=== PATIENT | male | born 1955 | race African-American/Black ===

== ENCOUNTER → 2017-02-09 | Outpatient (CLI) | payer MEDICARE, OTHER ==
[~2017-02-09] MED LIST: QUET300T2 PO
== END | disposition home or self-care (01) ==
LOC: RADPV 11:00
PROVIDERS: ATTEND Internal Medicine Gastroenterology
DX: K76.89 Other specified diseases of liver (principal); N28.1 Cyst of kidney, acquired
CPT/HCPCS: 76700

== ENCOUNTER → 2018-01-24 | Outpatient (CLI) | payer MEDICARE, OTHER | END | disposition home or self-care (01) | LOC: RADPV 09:16 | PROVIDERS: ATTEND Internal Medicine Gastroenterology | DX: K76.0 Fatty (change of) liver, not elsewhere classified (principal); N28.1 Cyst of kidney, acquired; B19.20 Unspecified viral hepatitis C without hepatic coma | CPT/HCPCS: 76700 ==

== ENCOUNTER 2019-11-10 16:24 | Emergency (ER) | payer OTHER ==
[~2019-11-10] VITALS: Ht 167.6 cm; Wt 65.9 kg
[2019-11-10] MEDS ORDERED: SODIUM CHLORIDE 0.9% 1,000 ML IV ONE (17:00)
[2019-11-10 17:47] LABS: GLUCOSE,POINT OF CARE 77 MG/DL (70-110)
[2019-11-10 18:12] LABS: BASOPHILS % (AUTO) 0.4 % (0.0-2.0); EOSINOPHILS % (AUTO) 0.5 % (1.0-6.0); HEMATOCRIT 40.7 % (41-53); HEMOGLOBIN 13.2 g/dL (13.5-17.5); LYMPHOCYTES # (AUTO) 1.6 K/uL (1.0-4.8); MEAN CORPUSCULAR HEMOGLOBIN 26.9 pg (26.0-34.0); MEAN CORPUSCULAR HGB CONC 32.4 G/dL (31.0-37.0); MEAN CORPUSCULAR VOLUME 83 fL (80-100); MONOCYTES # (AUTO) 0.4 K/uL (0.1-1.0); MONOCYTES % (AUTO) 6.7 % (2.0-9.0); NEUTROPHILS # (AUTO) 4.3 K/uL (1.8-7.7); NEUTROPHILS % (AUTO) 67.4 % (40.0-70.0); PLATELET COUNT (AUTO) 179 K/uL (150-450); RED CELL DISTRIBUTION WIDTH 13.5 % (11.5-14.5)
[2019-11-10 18:12] LABS: INFLUENZA TYPE A NEGATIVE FOR TYPE A (NEGATIVE); INFLUENZA TYPE B NEGATIVE FOR TYPE B (NEGATIVE)
[2019-11-10 18:21] LABS: CALCIUM, TOTAL 9.2 mg/dL (8.8-10.5); CREATININE 1.79 mg/dL (0.60-1.30)
[2019-11-10 18:29] LABS: LACTIC ACID 1.3 mmol/L (0.4-2.0)
[2019-11-10 18:36] LABS: ALBUMIN 4.2 g/dL (3.4-5.0); BILIRUBIN,TOTAL 0.4 mg/dL (0.1-1.0); TOTAL PROTEIN, SERUM 8.5 g/dL (6.4-8.2)
[2019-11-10 20:00] VITALS: BP 128/76
== END 2019-11-10 19:46 | disposition home or self-care (01) ==
LOC: EMS 16:27
DX: E86.0 Dehydration (principal); R79.89 Other specified abnormal findings of blood chemistry; R42 Dizziness and giddiness; I10 Essential (primary) hypertension; Z20.828 Contact with and (suspected) exposure to other viral communicable diseases; Z87.891 Personal history of nicotine dependence; Z95.0 Presence of cardiac pacemaker
CPT/HCPCS: 36415; 71045; 80053; 82962; 83605; 84484; 85025; 87426; 87804; 93005; 96360; 99285; J7030; 82948

== ENCOUNTER 2019-11-16 09:34 | Emergency (ER) | payer OTHER ==
[~2019-11-16] VITALS: Ht 167.6 cm; Wt 65.9 kg
[2019-11-16] MEDS ORDERED: PHENAZOPYRIDINE HCL 100 MG TABLET PO ONE (10:45)
[2019-11-16 12:24] LABS: APPEARANCE,URINE CLEAR (CLEAR); GLUCOSE, URINE (UA) NEGATIVE (NEGATIVE); KETONES,URINE TRACE mg/dL (NEGATIVE); LEUKOCYTE ESTERASE ,URINE SMALL (NEGATIVE); NITRATE,URINE POSITIVE (NEGATIVE); OCCULT BLOOD,URINE NEGATIVE (NEGATIVE); PROTEIN,URINE POS 1+ (NEGATIVE)
[2019-11-16 12:37] LABS: BILIRUBIN,URINE PRELIM. POSITIVE (NEGATIVE)
[2019-11-16 12:38] LABS: BACTERIA,URINE Few /HPF (None Seen); RBC,URINE 0-2 /HPF (0-2)
[2019-11-16 12:39] LABS: MUCUS,URINE Moderate LPF (None Seen)
[2019-11-16 12:45] VITALS: BP 143/69
== END 2019-11-16 13:40 | disposition home or self-care (01) ==
LOC: EMS 09:38
DX: N34.2 Other urethritis (principal); G89.29 Other chronic pain; Z87.891 Personal history of nicotine dependence
CPT/HCPCS: 87491; 87591

== ENCOUNTER 2019-11-18 07:16 | Emergency (ER) | payer OTHER ==
[~2019-11-18] VITALS: Ht 167.6 cm; Wt 62.3 kg
[2019-11-18] MEDS ORDERED: ASPI-728 PO (07:26)
[2019-11-18] MEDS ORDERED: CLON-592 PO (07:26)
[2019-11-18] MEDS ORDERED: CARV3 PO (07:26)
[2019-11-18] MEDS ORDERED: LISI-661 PO (07:26)
[2019-11-18] MEDS ORDERED: SPIR25 PO (07:26)
[2019-11-18] MEDS ORDERED: PERTUSS(ACELL),DIPH,TET VAC/PF 0.5 ML VIAL IM ONE (09:00)
[2019-11-18] MEDS ORDERED: CefTRIAXone SODIUM 1 GM/VIAL IM ONE (09:00)
[2019-11-18] MEDS ORDERED: AZITHROMYCIN 500 MG TABLET PO ONE (09:00)
[2019-11-18 09:14] VITALS: BP 133/75
[2019-11-18] MEDS ORDERED: PHENAZOPYRIDINE HCL 100 MG TABLET PO ONE (09:30)
[2019-11-18 10:02] LABS: APPEARANCE,URINE TURBID (CLEAR); GLUCOSE, URINE (UA) NEGATIVE (NEGATIVE); KETONES,URINE 15 mg/dL (NEGATIVE); LEUKOCYTE ESTERASE ,URINE SMALL (NEGATIVE); NITRATE,URINE POSITIVE (NEGATIVE); OCCULT BLOOD,URINE NEGATIVE (NEGATIVE); PROTEIN,URINE POS 1+ (NEGATIVE)
[2019-11-18 10:04] LABS: BILIRUBIN,URINE PRELIM. POSITIVE (NEGATIVE)
[2019-11-18 10:12] LABS: BACTERIA,URINE None Seen /HPF (None Seen); RBC,URINE None Seen /HPF (0-2); SQUAMOUS EPITHELIAL CELL,UR Few /LPF (None Seen); URIC ACID CRYSTALS,URINE Many /LPF (None Seen); WBC,URINE None Seen /HPF (0-5)
[2019-11-18 10:30] LABS: BASOPHILS % (AUTO) 0.2 % (0.0-2.0); EOSINOPHILS % (AUTO) 0.3 % (1.0-6.0); HEMATOCRIT 35.9 % (41-53); HEMOGLOBIN 11.7 g/dL (13.5-17.5); LYMPHOCYTES # (AUTO) 1.1 K/uL (1.0-4.8); LYMPHOCYTES % (AUTO) 15.9 % (22.0-44.0); MEAN CORPUSCULAR HEMOGLOBIN 27.2 pg (26.0-34.0); MEAN CORPUSCULAR HGB CONC 32.6 G/dL (31.0-37.0); MEAN CORPUSCULAR VOLUME 83 fL (80-100); MONOCYTES # (AUTO) 0.5 K/uL (0.1-1.0); MONOCYTES % (AUTO) 6.6 % (2.0-9.0); NEUTROPHILS # (AUTO) 5.6 K/uL (1.8-7.7); PLATELET COUNT (AUTO) 194 K/uL (150-450); RED BLOOD CELL COUNT(AUTO) 4.31 MIL/uL (4.50-5.90); RED CELL DISTRIBUTION WIDTH 13.4 % (11.5-14.5)
[2019-11-18 10:40] LABS: CALCIUM, TOTAL 9.4 mg/dL (8.8-10.5); CREATININE 2.19 mg/dL (0.60-1.30); POTASSIUM 4.6 mmol/L (3.5-5.1)
[2019-11-18 10:55] LABS: ALBUMIN 3.9 g/dL (3.4-5.0); BILIRUBIN,TOTAL 0.3 mg/dL (0.1-1.0); TOTAL PROTEIN, SERUM 8.3 g/dL (6.4-8.2)
== END 2019-11-18 11:32 | disposition home or self-care (01) ==
LOC: EMS 07:16
DX: N39.0 Urinary tract infection, site not specified (principal); R79.89 Other specified abnormal findings of blood chemistry; I10 Essential (primary) hypertension; Z87.891 Personal history of nicotine dependence; Z95.0 Presence of cardiac pacemaker; Z79.899 Other long term (current) drug therapy; Z79.82 Long term (current) use of aspirin
CPT/HCPCS: 36415; 80053; 81001; 85025; 87491; 87591; 90471; 90715; 96372; 99284; J0696

== ENCOUNTER 2020-01-16 20:49 | Inpatient (IN) | payer OTHER ==
[~2020-01-16] VITALS: Ht 170.2 cm; Wt 67.2 kg
[~2020-01-16 20:49] MED LIST changes: +ASPI-728 PO; +CARV3 PO; +CLON-592 PO; +LISI-661 PO; +SPIR25 PO
[2020-01-16 22:17] LABS: ANION GAP 8 mmol/L (8-16); BASOPHILS % (AUTO) 0.3 % (0.0-2.0); CARBON DIOXIDE 30 mmol/L (22-29); CHLORIDE 105 mmol/L (98-107); CREATININE 0.91 mg/dL (0.60-1.30); EOSINOPHILS % (AUTO) 1.1 % (1.0-6.0); GLOMERULAR FILTR. RATE CALC > 60 mL/min (>60); GLUCOSE,RANDOM 88 mg/dL (70-110); HEMATOCRIT 40.1 % (41-53); HEMOGLOBIN 13.1 g/dL (13.5-17.5); LYMPHOCYTES # (AUTO) 1.1 K/uL (1.0-4.8); LYMPHOCYTES % (AUTO) 23.5 % (22.0-44.0); MEAN CORPUSCULAR HEMOGLOBIN 27.7 pg (26.0-34.0); MEAN CORPUSCULAR HGB CONC 32.6 G/dL (31.0-37.0); MEAN CORPUSCULAR VOLUME 85 fL (80-100); MONOCYTES # (AUTO) 0.4 K/uL (0.1-1.0); MONOCYTES % (AUTO) 8.5 % (2.0-9.0); NEUTROPHILS # (AUTO) 3.2 K/uL (1.8-7.7); NEUTROPHILS % (AUTO) 66.6 % (40.0-70.0); PLATELET COUNT (AUTO) 201 K/uL (150-450); POTASSIUM 4.2 mmol/L (3.5-5.1); RED BLOOD CELL COUNT(AUTO) 4.73 MIL/uL (4.50-5.90); RED CELL DISTRIBUTION WIDTH 15.1 % (11.5-14.5); SODIUM SERUM 143 mmol/L (136-145); UREA NITROGEN, BLOOD 13 mg/dL (7-18)
[2020-01-16 22:23] LABS: INR 1.1 (0.9-1.1); PROTHROMBIN TIME 11.1 SEC (9.4-11.6)
[2020-01-16 22:41] LABS: ALANINE AMINOTRANSFERASE 19 U/L (12-78); ALKALINE PHOSPHATASE 94 U/L (46-116); ASPARTATE AMINOTRANSFERASE 20 U/L (15-37); BILIRUBIN,TOTAL 0.3 mg/dL (0.1-1.0); CREATINE KINASE, TOTAL ONLY 177 U/L (39-308); TOTAL PROTEIN, SERUM 8.1 g/dL (6.4-8.2)
[2020-01-16 22:51] LABS: B-TYPE NATRIURETIC PEPTIDE 50 pg/mL (0-100)
[2020-01-16] MEDS ORDERED: OxyCODONE HCL/ACETAMINOPHEN 5-325 MG TABLET PO PRN (23:00)
[2020-01-16] MEDS ORDERED: ACETAMINOPHEN 325 MG TABLET PO PRN (23:00)
[2020-01-16] MEDS: HEPARIN SODIUM,PORCINE 5,000 UNITS/ML VIAL SQ SCH (23:33)
[2020-01-17 03:04] LABS: APPEARANCE,URINE CLEAR (CLEAR); BILIRUBIN,URINE NEGATIVE (NEGATIVE); GLUCOSE, URINE (UA) NEGATIVE (NEGATIVE); KETONES,URINE NEGATIVE (NEGATIVE); LEUKOCYTE ESTERASE ,URINE NEGATIVE (NEGATIVE); NITRATE,URINE NEGATIVE (NEGATIVE); OCCULT BLOOD,URINE NEGATIVE (NEGATIVE); PROTEIN,URINE NEGATIVE (NEGATIVE); UROBILINOGEN,URINE 0.2 mg/dL (<=1.0)
[2020-01-17 03:10] LABS: AMPHET/METH SCREEN,URINE NEGATIVE (NEGATIVE); BARBITURATE SCREEN, URINE NEGATIVE (NEGATIVE); BENZODIAZEPINES SCREEN,URINE NEGATIVE (NEGATIVE); CANNABINOID SCREEN,URINE NEGATIVE (NEGATIVE); COCAINE SCREEN,URINE NEGATIVE (NEGATIVE); METHADONE SCREEN, URINE NEGATIVE (NEGATIVE); OPIATE SCREEN,URINE NEGATIVE (NEGATIVE); PHENCYCLIDINE SCREEN,URINE NEGATIVE (NEGATIVE)
[2020-01-17] MEDS: HEPARIN SODIUM,PORCINE 5,000 UNITS/ML VIAL SQ SCH ×3 (08:13→23:39)
[2020-01-17] MEDS: ASPIRIN 81 MG CHEWABLE TABLET PO SCH (08:14)
[2020-01-17] MEDS: FAMOTIDINE 20 MG TABLET PO SCH (08:14)
[2020-01-17] MEDS: DOCUSATE SODIUM 100 MG CAPSULE PO SCH ×2 (08:16→20:55)
[2020-01-17] MEDS: AmLODIPine BESYLATE 5 MG TABLET PO SCH (10:22)
[2020-01-17 12:00] VITALS: BP 177/91
[2020-01-17 14:16] LABS: GLUCOSE,POINT OF CARE 74 MG/DL (70-110)
[2020-01-17] MEDS: CARVEDILOL 6.25 MG TABLET PO SCH ×2 (15:04→20:55)
[2020-01-17] MEDS: LISINOPRIL 10 MG TABLET PO SCH (15:04)
[2020-01-17 16:00] VITALS: BP 140/74
[2020-01-17] MEDS ORDERED: RIFA300 PO (16:35)
[2020-01-17] MEDS ORDERED: LISI-662 PO (16:43)
[2020-01-17] MEDS ORDERED: QUET100T PO (16:43)
[2020-01-17] MEDS: RIFAMPIN 300 MG CAPSULE PO SCH (17:50)
[2020-01-17 20:00] VITALS: BP 119/69
[2020-01-18] VITALS (7 sets, daily range): BP systolic 117–154; BP diastolic 63–90
[2020-01-18] MEDS: HEPARIN SODIUM,PORCINE 5,000 UNITS/ML VIAL SQ SCH ×2 (08:34→18:30)
[2020-01-18] MEDS: RIFAMPIN 300 MG CAPSULE PO SCH (08:34)
[2020-01-18] MEDS: AmLODIPine BESYLATE 5 MG TABLET PO SCH (08:34)
[2020-01-18] MEDS: DOCUSATE SODIUM 100 MG CAPSULE PO SCH ×2 (08:34→21:00)
[2020-01-18] MEDS: ASPIRIN 81 MG CHEWABLE TABLET PO SCH (08:34)
[2020-01-18] MEDS: CARVEDILOL 6.25 MG TABLET PO SCH ×2 (08:34→21:00)
[2020-01-18] MEDS: FAMOTIDINE 20 MG TABLET PO SCH (08:34)
[2020-01-18] MEDS: LISINOPRIL 10 MG TABLET PO SCH (08:34)
[2020-01-18 09:40] LABS: BASOPHILS % (AUTO) 0.4 % (0.0-2.0); EOSINOPHILS % (AUTO) 1.1 % (1.0-6.0); HEMATOCRIT 43.1 % (41-53); HEMOGLOBIN 14.1 g/dL (13.5-17.5); LYMPHOCYTES # (AUTO) 1.1 K/uL (1.0-4.8); LYMPHOCYTES % (AUTO) 27.5 % (22.0-44.0); MEAN CORPUSCULAR HEMOGLOBIN 27.8 pg (26.0-34.0); MEAN CORPUSCULAR HGB CONC 32.7 G/dL (31.0-37.0); MEAN CORPUSCULAR VOLUME 85 fL (80-100); MONOCYTES # (AUTO) 0.4 K/uL (0.1-1.0); MONOCYTES % (AUTO) 8.8 % (2.0-9.0); NEUTROPHILS # (AUTO) 2.5 K/uL (1.8-7.7); NEUTROPHILS % (AUTO) 62.2 % (40.0-70.0); PLATELET COUNT (AUTO) 194 K/uL (150-450); RED BLOOD CELL COUNT(AUTO) 5.07 MIL/uL (4.50-5.90); RED CELL DISTRIBUTION WIDTH 14.9 % (11.5-14.5)
[2020-01-18 09:48] LABS: ANION GAP 5 mmol/L (8-16); CALCIUM, TOTAL 9.2 mg/dL (8.8-10.5); CARBON DIOXIDE 29 mmol/L (22-29); CHLORIDE 102 mmol/L (98-107); CREATININE 1.09 mg/dL (0.60-1.30); GLOMERULAR FILTR. RATE CALC > 60 mL/min (>60); GLUCOSE,RANDOM 115 mg/dL (70-110); SODIUM SERUM 136 mmol/L (136-145); UREA NITROGEN, BLOOD 14 mg/dL (7-18)
[2020-01-18 11:10] LABS: COVID AG,FIA SOURCE NASOPHARYNGEAL
[2020-01-19] MEDS: HEPARIN SODIUM,PORCINE 5,000 UNITS/ML VIAL SQ SCH ×3 (00:02→16:17)
[2020-01-19 04:43] VITALS: BP 135/72
[2020-01-19 07:29] VITALS: BP 140/58
[2020-01-19] MEDS: DOCUSATE SODIUM 100 MG CAPSULE PO SCH (09:13)
[2020-01-19] MEDS: FAMOTIDINE 20 MG TABLET PO SCH (09:13)
[2020-01-19] MEDS: LISINOPRIL 10 MG TABLET PO SCH (09:13)
[2020-01-19] MEDS: RIFAMPIN 300 MG CAPSULE PO SCH (09:14)
[2020-01-19] MEDS: ASPIRIN 81 MG CHEWABLE TABLET PO SCH (09:14)
[2020-01-19] MEDS: CARVEDILOL 6.25 MG TABLET PO SCH (09:14)
[2020-01-19] MEDS: AmLODIPine BESYLATE 5 MG TABLET PO SCH (09:14)
[2020-01-19 12:29] VITALS: BP 115/59
[2020-01-19] MEDS ORDERED: AMLO-257 PO (15:42)
[2020-01-19] MEDS ORDERED: CARV6 PO (15:42)
[2020-01-19] MEDS ORDERED: DOCU-275 PO (15:43)
[2020-01-19] MEDS ORDERED: HEPA500018 SQ (15:43)
[2020-01-19] MEDS ORDERED: FAMO20 PO (15:43)
[2020-01-19] MEDS ORDERED: LISI-661 PO (15:44)
[2020-01-19] MEDS ORDERED: ACET650S24 PO (15:45)
[2020-01-19] MEDS ORDERED: PERCT PO (15:46)
[2020-01-19 15:58] VITALS: BP 116/70
== END 2020-01-19 18:30 | disposition short-term general hospital (02) | DRG 315 ==
LOC: EMS 20:54 → ICUN 01-17 07:13 → ICU 01-17 09:39 → 5S 01-18 19:08
PROVIDERS: ADMIT Internal Medicine; ATTEND Internal Medicine
PROC: 4B02XTZ Measurement of Cardiac Defibrillator, External Approach (ICD-10-PCS; principal; 2020-01-19)
DX: T82.119A Breakdown (mechanical) of unspecified cardiac electronic device, initial encounter (principal); I42.8 Other cardiomyopathies; I11.0 Hypertensive heart disease with heart failure; I50.9 Heart failure, unspecified; B18.2 Chronic viral hepatitis C; Y83.8 Other surgical procedures as the cause of abnormal reaction of the patient, or of later complication, without mention of misadventure at the time of the procedure; Y92.89 Other specified places as the place of occurrence of the external cause; Z86.11 Personal history of tuberculosis; Y71.2 Prosthetic and other implants, materials and accessory cardiovascular devices associated with adverse incidents; Z87.891 Personal history of nicotine dependence; Z20.828 Contact with and (suspected) exposure to other viral communicable diseases
CPT/HCPCS: 87081; 87426; 93005; 93306; 99291; G0378; J1644; 36415-L1; 36415-TC; 71045-TC; 81003-TC; U0003

== ENCOUNTER 2021-02-09 12:04 | Emergency (ER) | payer OTHER ==
[~2021-02-09] VITALS: Ht 167.6 cm; Wt 65.0 kg
[~2021-02-09 12:04] MED LIST changes: +ACET650S24 PO; +AMLO-257 PO; +ASPI-1450 PO; -ASPI-728 PO; -CARV3 PO; +CARV6 PO; -CLON-592 PO; +DOCU-270 PO; +FAMO20 PO; +HEPA500018 SQ; -LISI-661 PO; +LISI-893 PO; +PERCT PO; -QUET300T2 PO; +RIFA300 PO; -SPIR25 PO
[2021-02-09] MEDS ORDERED: HYDROCODONE/ACETAMINOPHEN 5-325 MG TABLET PO ONE (13:15)
[2021-02-09] MEDS ORDERED: PERTUSS(ACELL),DIPH,TET VAC/PF 0.5 ML SYRINGE IM. ONE (13:15)
[2021-02-09 14:13] VITALS: BP 139/70
== END 2021-02-09 14:13 | disposition home or self-care (01) ==
LOC: EMS 12:04
DX: L08.9 Local infection of the skin and subcutaneous tissue, unspecified (principal); I11.0 Hypertensive heart disease with heart failure; I50.9 Heart failure, unspecified
CPT/HCPCS: 90471; 90715; 99283

== ENCOUNTER 2021-02-28 15:38 | Emergency (ER) | payer OTHER ==
[~2021-02-28] VITALS: Ht 170.2 cm; Wt 64.5 kg
[2021-02-28 16:51] VITALS: BP 112/63
[2021-02-28] MEDS ORDERED: ACETAMINOPHEN 325 MG TABLET PO ONE (17:30)
[2021-02-28] MEDS ORDERED: NAPROXEN 250 MG TABLET PO ONE (17:30)
== END 2021-02-28 17:42 | disposition home or self-care (01) ==
LOC: EMS 15:38
DX: Z46.6 Encounter for fitting and adjustment of urinary device (principal); I11.0 Hypertensive heart disease with heart failure; I50.9 Heart failure, unspecified
CPT/HCPCS: 99283

== ENCOUNTER 2021-03-01 12:12 | Emergency (ER) | payer OTHER ==
[~2021-03-01] VITALS: Ht 167.6 cm; Wt 63.6 kg
[2021-03-01 16:43] VITALS: BP 130/72
== END 2021-03-01 17:18 | disposition home or self-care (01) ==
LOC: EMS 12:14
DX: T83.098A Other mechanical complication of other urinary catheter, initial encounter (principal); R33.9 Retention of urine, unspecified; I10 Essential (primary) hypertension; Z79.899 Other long term (current) drug therapy; Z79.82 Long term (current) use of aspirin
CPT/HCPCS: 51702; 99284; Z7502

== ENCOUNTER 2021-03-04 04:50 | Emergency (ER) | payer OTHER ==
[~2021-03-04] VITALS: Ht 167.6 cm; Wt 63.0 kg
[2021-03-04] MEDS ORDERED: CIPR-279 PO (05:04)
[2021-03-04 05:14] LABS: APPEARANCE,URINE CLEAR (CLEAR); BILIRUBIN,URINE NEGATIVE (NEGATIVE); GLUCOSE, URINE (UA) NEGATIVE (NEGATIVE); KETONES,URINE 15 mg/dL (NEGATIVE); LEUKOCYTE ESTERASE ,URINE NEGATIVE (NEGATIVE); NITRATE,URINE NEGATIVE (NEGATIVE); OCCULT BLOOD,URINE LARGE (NEGATIVE); PH,URINE 5.5 (5.0-8.0); PROTEIN,URINE NEGATIVE (NEGATIVE)
[2021-03-04 05:15] VITALS: BP 146/65
[2021-03-04 05:16] LABS: BACTERIA,URINE Few /HPF (None Seen)
[2021-03-04] MEDS ORDERED: KETOROLAC TROMETHAMINE 30 MG/ML VIAL IM ONE (06:15)
== END 2021-03-04 06:20 | disposition home or self-care (01) ==
LOC: EMS 04:52
DX: R33.9 Retention of urine, unspecified (principal); I10 Essential (primary) hypertension; Z95.0 Presence of cardiac pacemaker; Z79.899 Other long term (current) drug therapy; Z79.82 Long term (current) use of aspirin
CPT/HCPCS: 51702; 81001; 96372; 99284; J1885

== ENCOUNTER 2021-04-01 14:59 | Emergency (ER) | payer OTHER ==
[~2021-04-01] VITALS: Ht 170.2 cm; Wt 59.1 kg
[~2021-04-01 14:59] MED LIST changes: +CIPR-279 PO
[2021-04-01 16:23] VITALS: BP 131/69
== END 2021-04-01 17:40 | disposition home or self-care (01) ==
LOC: EMS 15:10
DX: T83.031A Leakage of indwelling urethral catheter, initial encounter (principal); I10 Essential (primary) hypertension; Z79.899 Other long term (current) drug therapy
CPT/HCPCS: 99281; Z7502

== ENCOUNTER 2021-12-02 15:46 | Emergency (ER) | payer MEDICARE, MEDICAID ==
[~2021-12-02] VITALS: Ht 170.2 cm; Wt 65.9 kg
[~2021-12-02 15:46] MED LIST changes: -DOCU-270 PO; +DOCU-385 PO; -RIFA300 PO; +[UNRECOGNIZED DRUG - CODE] PO
[2021-12-02] MEDS ORDERED: CLON-592 PO (16:14)
[2021-12-02] MEDS ORDERED: IBUPROFEN 600 MG TABLET PO ONE (17:00)
[2021-12-02 17:21] VITALS: BP 134/76
[2021-12-02] MEDS ORDERED: IBUP-1554 PO (17:36)
[2021-12-02] MEDS ORDERED: HYDR-4723 PO (17:36)
== END 2021-12-02 18:09 | disposition home or self-care (01) ==
LOC: EMS 16:14
DX: S83.92XA Sprain of unspecified site of left knee, initial encounter (principal); M67.442 Ganglion, left hand; I10 Essential (primary) hypertension; Z95.0 Presence of cardiac pacemaker; X58.XXXA Exposure to other specified factors, initial encounter; Y93.89 Activity, other specified; Y92.89 Other specified places as the place of occurrence of the external cause; Y99.8 Other external cause status
CPT/HCPCS: 99283

== ENCOUNTER 2022-01-06 13:10 | Emergency (ER) | payer MEDICARE, MEDICAID ==
[~2022-01-06] VITALS: Ht 167.6 cm; Wt 65.9 kg
[~2022-01-06 13:10] MED LIST changes: -ACET650S24 PO; -AMLO-257 PO; -CIPR-279 PO; +CLON-592 PO; -DOCU-385 PO; -HEPA500018 SQ; +HYDR-4723 PO; +IBUP-1554 PO; -LISI-893 PO; -PERCT PO
[2022-01-06] MEDS ORDERED: SPIR-37 PO (13:16)
[2022-01-06] MEDS ORDERED: TAMS-13 PO (13:20)
[2022-01-06] MEDS ORDERED: IBUP-1554 PO (13:21)
[2022-01-06] MEDS ORDERED: AZIT250T9 PO (13:21)
[2022-01-06 13:55] VITALS: BP 119/82
== END 2022-01-06 14:10 | disposition home or self-care (01) ==
LOC: EMS 13:11
DX: S51.851A Open bite of right forearm, initial encounter (principal); I10 Essential (primary) hypertension; Z98.890 Other specified postprocedural states; W55.01XA Bitten by cat, initial encounter; Y93.89 Activity, other specified; Y92.89 Other specified places as the place of occurrence of the external cause; Y99.8 Other external cause status
CPT/HCPCS: 99283; Z7502